=== PATIENT | female | born 1980 | race Caucasian/White ===

== ENCOUNTER → 2023-05-17 | Outpatient (CLI) | payer OTHER, SELFPAY ==
--- NOTE | 2023-05-17 13:15 | CYST_PTH ---
PATHOLOGY RESULTS PATIENT: PRADEEP LE LOC: [facility] U#:[id number] AGE/SX: 43/F ROOM: RE05/17/[address]: Dr. Kevny Lua MD : [id number] BED: DIS: 05/17/2023 SPEC #: [id number] RECD: 05/17/23 15:06 STATUS: DENIS FARZANEH #: [id number] JOSE: 05/17/23 13:[address]: Kevyn Lua DEPT: SURGICAL PATHOLOGY RECD BY: Paula Herrera ENTERED: 05/18/23 06:58 SP TYPE: Cyst OTHR DR: Dr. Yuan Sandoval, DO Tissues: CYST Procedures: Surgery Specimen Level III HEADER OPERATION: Excision of cyst mid lower back PRE-OP DIAGNOSIS: Cyst on lower back TISSUE SUBMITTED: Lower back cyst MICROSCOPIC DIAGNOSIS Lesion of mid lower back, excision: Epidermal inclusion cyst. AM:david 05/19/2023 MICROSCOPIC DESCRIPTION Slides are reviewed. GROSS DESCRIPTION Received in fixative is one container labeled with the patient's name and designated lower back cyst. The specimen consists of a piece of skin with underlying previously ruptured cyst. The skin piece measures 1.5 x 0.4 cm and underlying cyst measures 2.5 x 2.5 x 1.5 cm. It is filled with sebum-like material. Cosmetics Presser sections are submitted in one cassette. / SJ:rg 05/18/2023 TC:5 CPT: 46838
== END | disposition home or self-care (01) ==
LOC: LABSPEC 15:14
PROVIDERS: PCP Student in an Organized Health Care Education/Training Program; Referring Provider Student in an Organized Health Care Education/Training Program; Visit Provider Surgery
DX: L72.9 Follicular cyst of the skin and subcutaneous tissue, unspecified (principal)
CPT/HCPCS: 88304